=== PATIENT | female | born 1935 | race Caucasian/White ===

== ENCOUNTER 2016-11-14 01:08 | Observation (INO) | payer MEDICARE, OTHER ==
--- NOTE | ~2016-11-14 | DS ---
Discharge Summary [facility] [address] [facility] [place]. [address] NAME: ZORA LEWIS : 35 STATUS : ADM Leonidas PAT#: [id number] AGE: 81 ADM/REG DATE : 11/14/16 MR#: [id number] REPORT SERV DATE: 11/15/16 DICTATED BY: Chris MEHTA DATE: 11/15/16 REPORT STATUS : Draft TRANSCRIBED BY: MODLiane DATE: 11/15/16 ADMISSION DATE: 11/14/2016 DISCHARGE DATE: 11/15/2016 DIAGNOSES AT DISCHARGE: 1. Transient ischemic attack. 2. Benign right tonsillar cyst. 3. Atrial fibrillation. 4. Urinary tract infection, present on admission. CONSULTS: Neurology. PROCEDURES: 1. MRI of the brain negative for stroke. 2. MRA of the head and neck negative for significant stenosis. 3. CTA of the neck suggestive of tonsillar lesion. BRIEF HOSPITAL COURSE: An 81-year-old female patient admitted with TIA-related symptoms. Imaging of her brain were unremarkable. Imaging of the neck showed no stenosis but suggested right tonsillar lesion. ENT was consulted. They evaluated the patient, felt this was a benign cystic lesion and did not require further evaluation and recommend followup p.r.n. With regarding to her atrial fibrillation, she was placed on Eliquis 2.5 b.i.d. along with aspirin 81 daily. She will continue on her current statin dose. The patient did have a UTI present on admission. Culture is pending. She will continue with Ceftin 500 b.i.d., to complete a seven-day course. She initially had two days of IV Rocephin in the hospital. She will go home today with the above-mentioned intervention and follow up with primary care in two weeks. DISCHARGE MEDICATIONS: As follows. Eliquis 2.5 b.i.d., aspirin 81 daily, Lipitor 80 at bedtime, Ceftin 500 b.i.d. for five days, Lanoxin 0.125 daily, diltiazem 180 b.i.d., Betapace 80 b.i.d., Aldactone 25 q.a.m., Ambien 2.5 at bedtime p.r.n., and glipizide 2.5 mg with breakfast. Further recommendations pending outpatient followup. [facility]/MODL Chris Mehta M.D. / [id number] CC: MD West Black M.D.
--- NOTE | ~2016-11-14 | CN ---
Consultation Report [facility] [address] [place]. [address] NAME: ZORA LEWIS : 35 STATUS : ADM IN PAT#: [id number] AGE: 81 ADM/REG DATE : 11/14/16 MR#: [id number] REPORT SERV DATE: 11/14/16 DICTATED BY: BETTY ERVIN. DATE: 11/14/16 REPORT STATUS : Draft TRANSCRIBED BY: MODL DATE: 11/14/16 DATE OF CONSULTATION: 11/14/2016 REASON FOR CONSULTATION: Transient ischemic attack. PRIMARY CARE PHYSICIAN: Dr. Hurst. HOSPITALIST: Dr. Roel Cummings. HISTORY OF PRESENT ILLNESS: The patient is an 81-year-old female, who was watching the ball game yesterday, when she had a sudden onset of dysarthria and facial drooping. This occurred at approximately 8:00 p.m. She tried to take a sip of the soda and the soda drained out of the corner of her mouth. This lasted approximately five minutes and resolved as quickly as it had started. Her mentioned that her speech was slurred. She denied any anomia or aphasia. She denied any visual changes, any numbness or weakness in the extremities, and denied any ataxia. She knew that something was wrong and went and took one baby aspirin. Consequently, she went to the emergency department at [facility] where testing and diagnostics were performed. A CT scan was done of her brain which came back negative for acute changes. She was unable to have an MRI since she has a dual chamber pacemaker. This was placed in 2002 for sick sinus syndrome. The CT scan came back negative. She also had lab work drawn. It was found that she had a urinary tract infection. She also had elevated cardiac enzymes and this was concerning. Consequently, the patient was transferred to [facility] for further evaluation and treatment. Upon questioning, the patient mentions that her cardiac enzymes have been elevated. Two weeks ago, when her was in the hospital, she experienced some chest and neck tightness. At that time, it was found that her enzymes were elevated. She had a more formal-type evaluation and it was thought to be noncardiac in nature. Of particular concern, the patient admits that she has been off Jantoven. She does not know why but her PCP took her off this medication. She denies any history of falls and she does have a history of paroxysmal atrial fibrillation. PAST MEDICAL HISTORY: Diabetes mellitus type 2, sick sinus syndrome, status post pacemaker placement in 2002, paroxysmal atrial fibrillation (patient was on Jantoven, was recently taken off the medication), hyperlipidemia, and insomnia. PAST SURGICAL HISTORY: Pacemaker insertion and total abdominal hysterectomy. HOME MEDICATION LIST: Includes aspirin 81 mg daily, Lipitor 20 mg at bedtime, digoxin 0.125 mg daily, diltiazem ER 180 mg b.i.d., Glucotrol 2.5 mg before breakfast, Betapace 80 mg twice a day, Aldactone 25 mg every morning, Ambien 2.5 mg at bedtime. ALLERGIES: SULFA, NITROGLYCERIN, PERCOCET, HYDROCODONE, AND STEROIDS. SOCIAL HISTORY: The patient is . She has one daughter. She is retired from a dooub Consultation Report [address] [address] NAME: ZORA LEWIS : 35 STATUS : ADM IN [facility]#: [id number] AGE: 81 ADM/REG DATE : 11/14/16 MR#: [id number] REPORT SERV DATE: 11/14/16 DICTATED BY: BETTY ERVIN. DATE: 11/14/16 REPORT STATUS : Draft TRANSCRIBED BY: CARMEN DATE: 11/14/16 Punctil. She does not smoke, drink alcohol, or use illicits. FAMILY HISTORY: The patient's mother from an CA. Her father from skin cancer. She has two brothers who are alive, both have had strokes. She has two sisters, who are alive, one suffered from breast cancer. REVIEW OF SYSTEMS: Please refer to HPI. PHYSICAL EXAMINATION: VITAL SIGNS: The patient is an 81-year-old female, who stands 5 feet 6 inches tall and weighs 130 pounds. She is afebrile. Heart rate 60 (AV-paced), respiratory rate 16, O2 saturations on room air 94%, and blood pressure 130/60. NEURO: The patient is pleasant, communicates appropriately, is talkative. She is oriented x4. Speech is clear. Language is fluent. No dysarthria. Cranial nerves II through XII are intact. There is no facial droop at this time. She does have a slight head and neck tremor (action tremor). She can move all extremities x4. There is no dysmetria, tremor, or asterixis. There is no pronator drift. Upper extremity strength is 5/5 bilaterally. DTRs are 1+ bilaterally. No reported sensory deficits. Lower extremity strength is 5/5 bilaterally. Patellar reflexes are 2+ bilaterally. Downgoing toes. No reported sensory deficits. No extinction. The patient can get out of the bed. She ambulates without any ataxia. Romberg is negative. She is unable to tandem. NECK: No carotid bruits, JVD, or thyromegaly. CHEST: Lung sounds clear. CARDIAC: Regular rhythm (paced). NIH stroke scale is 0. ASSESSMENT AND PLAN: 1. Probable transient ischemic attack. The patient's symptoms completely resolved after five minutes. She demonstrates no focal deficits on neuro exam. At this point, we will do a CTA of the head and neck to rule out any arterial stenosis. We will also do an echocardiogram and check further lab work; PT/OT evaluation; bedside dysphagia screen, if the patient fails this, speech therapy will be consulted. The patient will continue aspirin 81 mg daily. Her Lipitor will be increased to 80 mg at bedtime and Eliquis 2.5 mg b.i.d. will be added to this regimen. Eliquis will be added 2.5 mg b.i.d. instead of going back on . Risk factor reduction was stressed with the patient (risk for stroke are hypertension, diabetes, and hyperlipidemia). 2. Elevated troponin. This will be treated per the hospitalist team. 3. Urinary tract infection. The patient's urine will be rechecked at this point and treated accordingly per the hospitalist team. Thank you again for including us in consultation. We will continue to follow with you. QUINN/CARMEN Consultation Report [facility] [address] [facility] [place]. [address] NAME: ZORA LEWIS : 35 STATUS : ADM IN [facility]#: [id number] AGE: 81 ADM/REG DATE : 11/14/16 MR#: [id number] REPORT SERV DATE: 11/14/16 DICTATED BY: BETTY ERVIN DATE: 11/14/16 REPORT STATUS : Draft TRANSCRIBED BY: CARMEN DATE: 11/14/16 Betty Ervin [facility] / [id number] CC: MD West Black M.D.
--- NOTE | ~2016-11-14 | HP ---
History And Physical [address] [place]. [address] NAME: ZORA BETTENCOURT : 35 STATUS : ADM IN [facility]#: [id number] AGE: 81 ADM/REG DATE : 11/14/16 MR#: [id number] REPORT SERV DATE: 11/14/16 DICTATED BY: EVELYNE WALLS DATE: 11/14/16 REPORT STATUS : Draft TRANSCRIBED BY: CARMEN DATE: 11/14/16 DATE OF ADMISSION: 11/14/2016 POINT OF ENTRY: Transfer from [facility] Emergency Department. PRIMARY CARE PHYSICIAN: Dr. Hurst. PRIMARY CARDIOVASCULAR PHYSICIAN ASSISTANT: Dr. Jackson at [facility] in [place], [place]. CHIEF COMPLAINT: Facial droop expressive aphasia, dysarthria. HISTORY OF PRESENT ILLNESS: Ms. Bettencourt is an 81-year-old female with history of non-insulin- dependent diabetes type 2; hyperlipidemia; sick sinus syndrome, status post pacemaker insertion as well as what sounds to be paroxysmal atrial fibrillation, no longer on anticoagulation, who presents to the emergency room today with an episode of facial droop dysarthria and aphasia. The patient states that she was in her usual state of health until about 8 p.m. when she states that she did not feel right. She tried to take a drink soda and it dribbled out the side of her mouth. She immediately went to take a baby aspirin. Shortly afterwards, she noticed that she was having some slurred speech. Her also noted that she was having some slight facial asymmetry and droop primarily around the lip region. She estimates that these symptoms last approximately 5-10 minutes and then completely resolve. The patient states that she was seen by her PCP about a week and a half ago. At that time, she states that she was not feeling well. For some reason, her PCP checked her cardiac enzymes. They were mildly elevated even though she denies having any chest pain. On recheck, a day later the enzymes remain elevated, therefore, she was referred to [facility], where her space systems operations superintendent is for her troponin elevation, and according to the patient, it sounds as if the physicians there were not concerned for any active ischemic event and discharged her home without extensive workup or intervention. Initial evaluation at [facility] this evening of her CT scan of the brain was unremarkable. EKG shows an atrial paced rhythm. Urinalysis does show some evidence of urinary tract infection. Labs were unremarkable except for a mildly elevated troponin level of 0.12 as well as a leukocytosis of 15,200. INR was 0.9. The patient was given aspirin as well as some of her home medications and transferred to [facility] for high level of care as [facility] did not have any beds. REVIEW OF SYSTEMS: Comprehensive review of system otherwise negative unless listed in history of present illness. The patient states that she has previously been on Coumadin for what she presumes was atrial fibrillation; however, her primary care physician took her off the Coumadin approximately 2 months ago for unclear reasons. History And Physical [address] [place]. [address] NAME: ZORA BETTENCOURT : 35 STATUS : ADM IN [facility]#: [id number] AGE: 81 ADM/REG DATE : 11/14/16 MR#: [id number] REPORT SERV DATE: 11/14/16 DICTATED BY: EVELYNE WALLS DATE: 11/14/16 REPORT STATUS : Draft TRANSCRIBED BY: CARMEN DATE: 11/14/16 PREVIOUS MEDICAL HISTORY: 1. Hno-szmlhxl-vwyhkaiis diabetes mellitus type 2. 2. Hyperlipidemia. 3. Sick sinus syndrome, status post pacemaker insertion. 4. Presumed history of paroxysmal atrial fibrillation, no longer on Coumadin. SURGICAL HISTORY: 1. Pacemaker. 2. Hysterectomy. ALLERGIES: SULFA DRUGS, NITROGLYCERIN, OXYCODONE, ACETAMINOPHEN, HYDROCODONE, STEROIDS, SULFATE, AND SULFONAMIDES. HOME MEDICATIONS: 1. Aspirin 81 mg daily. 2. Atorvastatin 20 mg at bedtime. 3. Lanoxin 0.125 mg daily. 4. Diltiazem 180 mg b.i.d. 5. Glucotrol 2.5 mg daily. 6. Sotalol 80 mg b.i.d. 7. Aldactone 25 mg daily. 8. Ambien 2.5 mg at bedtime. SOCIAL HISTORY: Denies any tobacco, alcohol, or illicits. FAMILY MEDICAL HISTORY: Mother and father with coronary artery disease and sibling with history of breast cancer. LABS AND IMAGING: All obtained from transfer records from [facility] Emergency Room: 1. White count 15.2, hemoglobin 14.4, hematocrit 43.9, and platelet count 271. 2. Sodium is 137, potassium 4.4, chloride 103, carbon dioxide 23, BUN 12, creatinine 0.9, glucose 136, and calcium 10.2. 3. Troponin 0.12. 4. Urinalysis: Specific gravity of 1.004, 54 white blood cells per high-power field with positive leukocyte esterase. 5. CT scan of brain shows no acute intracranial abnormality. Does show some left basal ganglia. Prominent perivascular space versus a previous lacune. 6. EKG per my review shows atrial paced rhythm with evidence of any acute ischemia or infarction. PHYSICAL EXAMINATION: VITAL SIGNS: Temperature is 98.1 degrees Fahrenheit, pulse is 59, respirations 16, saturating 95% on room air, and blood pressure 160/70. GENERAL: The patient is awake, alert, no acute distress. Resting comfortably in bed. She is a well-developed, well-nourished, elderly female. HEENT: Atraumatic and normocephalic. Moist mucous membranes. Pupils equal, round, reactive History And Physical [address] [address] NAME: ZORA BETTENCOURT : 35 STATUS : ADM IN [facility]#: [id number] AGE: 81 ADM/REG DATE : 11/14/16 MR#: [id number] REPORT SERV DATE: 11/14/16 DICTATED BY: EVELYNE WALLS DATE: 11/14/16 REPORT STATUS : Draft TRANSCRIBED BY: CARMEN DATE: 11/14/16 to light and accommodation. Extraocular eye movements intact. No scleral icterus. NECK: No jugular vein distention. No carotid bruits. CARDIAC: Regular rate and rhythm. No murmurs, rubs, or gallops. Normal S1, S2. LUNGS: Clear to auscultation bilaterally. No wheezes, rhonchi, or crackles. ABDOMEN: Soft, nontender, nondistended. Good bowel sounds. No rebound, guarding, or rigidity. EXTREMITIES: Warm, perfused. No cyanosis, clubbing, or edema. SKIN: Warm and dry. PSYCH: Affect appropriate. NEUROLOGIC: Alert and oriented x3. Cranial nerves 2 through 12 grossly intact. Speech is normal. Gait not assessed. ASSESSMENT: Ms. Bettencourt is an 81-year-old female who is being transferred for further workup for what sounds to be a transient ischemic attack with a self-resolved episode of dysarthria and facial droop. However, also found to have evidence of leukocytosis, elevated troponin level, as well as urinary tract infection. PROBLEM LIST: 1. Facial droop and dysarthria concerning for transient ischemic attack. 2. Elevated troponin level. 3. Leukocytosis. 4. Urinary tract infection. 5. Paroxysmal atrial fibrillation, no longer on anticoagulation. 6. Bry-rksioep-bpxeevpka diabetes mellitus type 2. PLAN: 1. Dysarthria and facial droop, concern for TIA. We will admit patient to the Hospitalist Service. We will consult Neurology for assistance. Unfortunately, the patient has a pacemaker, therefore, I think MRI may be contraindicated; however, I am not sure if it is a MRI friendly device at this time. We will order carotid/arterial Dopplers as well as echocardiogram and further lab workup. We will place the patient on high-dose statin and aspirin. I suspect the patient may have underlying paroxysmal atrial fibrillation, which given her age and other comorbidities may be the etiology for possible TIA. This will need to be further investigated. We will request records from prior space systems operations superintendent as well as interrogate her pacemaker to detect its underlying rhythm. 2. Urinary tract infection. We will place the patient on IV Rocephin. Of note, she is asymptomatic but does have evidence of leukocytosis. We will follow up urine culture from [facility]. 3. Leukocytosis likely secondary to urinary tract infection. She is afebrile. Denies any other infectious type sources, but we will check a chest x-ray for completeness. 4. Elevated troponin level. The patient adamantly denies any chest pain. EKG is nonischemic. Of note, she did have a previous series of elevated troponin level of about a week to week and a half ago and was referred to [facility] without intervention. We will trend these enzymes out as well as serial EKGs and follow up echocardiogram. 5. Paroxysmal atrial fibrillation, no longer on anticoagulation. Again, we will try to obtain Cardiology records and the pacemaker to confirm history of paroxysmal atrial History And Physical [address] [address] NAME: ZOAR BETTENCOURT : 35 STATUS : ADM IN PAT#: [id number] AGE: 81 ADM/REG DATE : 11/14/16 MR#: [id number] REPORT SERV DATE: 11/14/16 DICTATED BY: EVELYNE WALLS DATE: 11/14/16 REPORT STATUS : Draft TRANSCRIBED BY: MODLiane DATE: 11/14/16 fibrillation. Given that she is no longer on anticoagulation, this may be the etiology of patient's neurologic symptoms. Continue patient's digoxin, diltiazem, and sotalol. 6. DVT prophylaxis. Lovenox subcutaneous. CODE STATUS: The patient wished to be full code. ZACHARY/CARMEN Evelyne Walls MD / [id number] CC: MD West Black M.D.
--- NOTE | ~2016-11-14 | CN ---
Consultation Report [facility] [address] [place]. [address] NAME: ZORA LEWIS : 35 STATUS : DIS Leonidas PAT#: [id number] AGE: 81 ADM/REG DATE : 11/14/16 MR#: [id number] REPORT SERV DATE: 11/16/16 DICTATED BY: CECILIA THOMPSON DATE: 11/15/16 REPORT STATUS : Draft TRANSCRIBED BY: MODLiane DATE: 11/15/16 DATE OF CONSULTATION: 11/15/2016 CHIEF COMPLAINT: Right tonsil cyst. HISTORY OF PRESENT ILLNESS: An 81-year-old female admitted to [facility] for probable TIA. She was discontinued off her blood thinners for atrial fibrillation, and then began to have symptoms with speech slurring and facial droop. Upon admission she underwent CT scan of the brain and a CTA of the head and neck which showed a cystic type lesion in the right tonsil. She also reports preceding tonsillar infection approximately 3 weeks ago treated with amoxicillin that resolved. Today, this morning she reports no odynophagia, dysphagia, throat pain, fever, chills, weakness, or hoarseness. PHYSICAL EXAMINATION: HEENT: Her ears are normal. Her nose is normal. Her oral cavity and oropharynx revealed symmetrical tonsils. Uvula is in the midline. The right superior tonsillar pillar has cryptic change compared to the left, but no asymmetry, no trismus, no torticollis. Her hypopharynx and larynx not directly visualized. NECK: Nontender without cervical adenopathy with full range of motion. NEURO: Cranial nerves 2 through 12 are intact. IMPRESSION: Benign tonsillar cyst right side incidentally noted on CTA of the head and neck. I see no need for therapeutic intervention at this time either with medication or surgical intervention. RECOMMENDATION: Outpatient followup if symptoms recur. PH/MODLiane Cecilia Thompson M.D. / [id number] CC: MD West Black M.D.
[2016-11-14] MEDS ORDERED: ASAB PO (01:40)
[2016-11-14] MEDS ORDERED: LIPITOR20 PO (01:42)
[2016-11-14] MEDS ORDERED: LAN125 PO (01:44)
[2016-11-14] MEDS ORDERED: BETAPACE80 PO (01:47)
[2016-11-14] MEDS ORDERED: SPIRO25 PO (01:48)
[2016-11-14] MEDS ORDERED: AMB5 PO (01:49)
[2016-11-14] MEDS ORDERED: DILT-XR180 MG PO (01:51)
[2016-11-14] MEDS ORDERED: GLUCOTROL5 PO (01:52)
[2016-11-14 03:06] LABS: CPK 59 U/L (0-200)
[2016-11-14 03:08] LABS: TROPONIN I 0.29 NG/ML (<0.05)
[2016-11-14 09:30] LABS: BASOPHILS 0.2 %; BASOPHILS ABSOLUTE 0.03 10/3/uL (0.0-0.16); EOSINOPHILS 3.1 %; EOSINOPHILS ABSOLUTE 0.43 10/3/uL (0.0-0.53); HEMATOCRIT 38.8 % (36.0-48.0); HEMOGLOBIN 13.5 g/dL (12.0-16.0); IMMATURE GRANULOCYTES 0.3 %; IMMATURE GRANULOCYTES ABSOLUTE 0.04 10/3/uL (0.0-0.11); INTERNATIONAL NORMAL RATI 1.2 UNITS (-); LYMPHOCYTES 26.9 %; LYMPHOCYTES ABSOLUTE 3.73 10/3/uL (0.67-4.30); MEAN CORPUS HGB CONC 34.8 g/dL (32.0-36.0); MEAN CORPUSCULAR HEMOGLOB 31.5 pg (26.0-34.0); MEAN CORPUSCULAR VOLUME 90.7 fL (80-100); MEAN PLATELET VOLUME 11.3 fL (9.2-13.0); MONOCYTES 6.3 %; MONOCYTES ABSOLUTE 0.88 10/3/uL (0.21-1.20); NEUTROPHILS 63.2 %; NEUTROPHILS ABSOLUTE 8.76 10/3/uL (2.02-8.40); PARTIAL THROMBO TIME 27.3 SEC (22.5-37.2); PLATELET COUNT 195 10/3/uL (150-400); RBC DISTRIBUTION WIDTH 13.3 % (12.0-16.0); RED CELL COUNT 4.28 10/6/uL (4.0-5.6); WHITE BLOOD CELLS 13.9 10/3/uL (4.5-10.5)
[2016-11-14 09:31] LABS: MANUAL DIFF NO %
[2016-11-14 09:44] LABS: CHOL/HDL RATIO(NOT ORDER) 2.3 (0-5); CHOLESTEROL 120 MG/DL (< 200); FREE T4 1.27 NG/DL (0.76-1.46); HDL CHOLESTEROL 53 MG/DL (> 49); LDL CHOLESTEROL 49 MG/DL (< 130); NON-HDL CHOLESTEROL 67 MG/DL (< 160); TRIGLYCERIDE 92 MG/DL (< 150)
[2016-11-14 11:47] LABS: CPK 62 U/L (0-200)
[2016-11-14 11:53] LABS: CK-MB < 0.5 NG/ML; TROPONIN I 0.31 NG/ML (<0.05)
[2016-11-14 12:01] LABS: C-REACTIVE PROTEIN < 2.9 MG/L (<8.0)
[2016-11-14 12:24] LABS: BUN (BLOOD UREA NITROGEN) 10 MG/DL (6-23); CALCIUM, SERUM 9.5 MG/DL (8.5-10.4); CHLORIDE, SERUM 101 MMOL/L (96-112); CO2 (CARBON DIOXIDE) 25 MMOL/L (24-34); CREATININE 0.93 MG/DL (0.55-1.02); DIGOXIN 0.5 NG/ML (0.8-2.0); FOLATE 13.6 NG/ML (>5.2); GFR AFRICAN AMERICAN 67 ML/MIN (>=60); GFR NON AFRICAN AMERICAN 58 ML/MIN (>=60); GLUCOSE, SERUM 221 MG/DL (60-99); POTASSIUM, SERUM 3.9 MMOL/L (3.5-5.3); SODIUM, SERUM 138 MMOL/L (135-148)
[2016-11-14 13:01] LABS: PROCALCITONIN <0.05 ng/mL (<0.5)
[2016-11-14 17:34] LABS: ASCORBIC ACID (UR NOT ORDER) NEG (NEG); BILIRUBIN, URINE NEGATIVE (NEG); KETONE, URINE NEGATIVE (NEG); LEUKOCYTE ESTERASE(NOT OR LARGE (NEG); WBC (NOT ORDERED) (RFLEX) 109 (0-5)
[2016-11-14 19:20] LABS: CK-MB 0.7 NG/ML; CPK 106 U/L (0-200); TROPONIN I 0.31 NG/ML (<0.05)
[2016-11-15 06:27] LABS: HEMATOCRIT 41.8 % (36.0-48.0); HEMOGLOBIN 14.2 g/dL (12.0-16.0); MANUAL DIFF YES %; MEAN CORPUSCULAR HEMOGLOB 31.8 pg (26.0-34.0); MEAN CORPUSCULAR VOLUME 93.5 fL (80-100); MEAN PLATELET VOLUME 11.7 fL (9.2-13.0); PLATELET COUNT 198 10/3/uL (150-400); RED CELL COUNT 4.47 10/6/uL (4.0-5.6); WHITE BLOOD CELLS 13.2 10/3/uL (4.5-10.5)
[2016-11-15 06:36] LABS: A/G RATIO 0.9 (0.7-1.9); ALBUMIN 3.4 G/DL (3.5-5.0); ALKALINE PHOSPHATASE 113 U/L (45-117); BUN (BLOOD UREA NITROGEN) 10 MG/DL (6-23); CALCIUM, SERUM 9.7 MG/DL (8.5-10.4); CHLORIDE, SERUM 102 MMOL/L (96-112); CO2 (CARBON DIOXIDE) 27 MMOL/L (24-34); GFR AFRICAN AMERICAN 70 ML/MIN (>=60); GFR NON AFRICAN AMERICAN 60 ML/MIN (>=60); GLOBULIN 3.9 G/DL (2.5-4.1); POTASSIUM, SERUM 3.9 MMOL/L (3.5-5.3); SGOT(AST) 20 U/L (5-40); SGPT(ALT) 19 U/L (5-65); SODIUM, SERUM 139 MMOL/L (135-148); TOTAL BILIRUBIN 1.4 MG/DL (0-1.2); TOTAL PROTEIN 7.3 G/DL (6.0-8.5)
[2016-11-15 06:38] LABS: GLUCOSE, SERUM 132 MG/DL (60-99)
[2016-11-15 06:52] LABS: BAND NEUTROPHILS 1 %; EOSINOPHILS 3 %; LYMPHOCYTES 37 %; LYMPHOCYTES ABSOLUTE (CALC) 4.88 10/3/uL (0.67-4.30); MONOCYTES 2 %; MONOCYTES ABSOLUTE (CALC) 0.26 10/3/uL (0.21-1.20); NEUTROPHILS ABSOLUTE (CALC) 7.66 10/3/uL (2.02-8.40); PLATELET ESTIMATE ADQ (ADEQUATE); RBC MORPHOLOGY NORM (NORMAL); SEGMENTED NEUTROPHIL (0) 57 %; TOTAL NUCLEATED CELLS 100
[2016-11-15] MEDS ORDERED: ELIQUIS 2.5 MG2.5 MG PO (16:52)
[2016-11-15] MEDS ORDERED: CEFT5 PO (16:53)
== END 2016-11-15 17:52 | disposition home or self-care (01) ==
LOC: 1SO 01:08
PROVIDERS: Internal Medicine; Nurse Practitioner; Nurse Practitioner Acute Care
DX: G45.9 Transient cerebral ischemic attack, unspecified (principal); D72.829 Elevated white blood cell count, unspecified; N39.0 Urinary tract infection, site not specified; I48.0 Paroxysmal atrial fibrillation; E11.9 Type 2 diabetes mellitus without complications; J35.8 Other chronic diseases of tonsils and adenoids; E78.00 Pure hypercholesterolemia, unspecified; Z95.0 Presence of cardiac pacemaker; Z90.710 Acquired absence of both cervix and uterus; Z88.2 Allergy status to sulfonamides; Z88.5 Allergy status to narcotic agent; Z88.8 Allergy status to other drugs, medicaments and biological substances; Z79.82 Long term (current) use of aspirin; Z79.899 Other long term (current) drug therapy; Z82.49 Family history of ischemic heart disease and other diseases of the circulatory system; Z80.3 Family history of malignant neoplasm of breast; Z98.41 Cataract extraction status, right eye; Z98.42 Cataract extraction status, left eye
CPT/HCPCS: 70450; 70496; 70498; 71010; 71020; 80048; 80053; 80061; 80162; 81001; 82140; 82306; 82550; 82553; 82607; 82746; 82962; 83036; 84145; 84439; 84443; 84484; 85025; 85610; 85652; 85730; 86140; 87086; 93005; 93288; 96372; 96374; 96376; 97161-GP; 97165-GO; A9270-GY; C8929; G0378; G8978-CH-GP; G8979-CH-GP; G8980-CH-GP; G8987-CJ-GO; G8988-CJ-GO; G8989-CJ-GO; Q9957; Q9967